=== PATIENT | male | born 1975 | race African-American/Black ===

== ENCOUNTER → 2019-12-29 | Outpatient (CLI) | payer BC ==
--- NOTE | 2019-12-29 16:50 | KCIC ---
Right foot 3 views INDICATION: Tarsal coalition and pain in the right ankle and foot. COMPARISON: None. FINDINGS: AP, oblique and lateral views of the right foot show flattening of the normal plantar arch and moderately advanced mid foot degenerative changes with osteophytic spurring in the talar neck. There is slight valgus deformity of the foot relative to the tibia on the AP view. The subtalar joint is poorly visualized, with a C-shaped curvilinear osseous contour projecting over the subtalar joint that is suggestive of a subtalar tarsal coalition. No acute fracture or aggressive appearing osseous lesions. There is mild early bunion deformity. 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 Right ankle 3 views INDICATION: Pain in the right ankle and joints of the right foot COMPARISON: Right foot x-rays same day. Findings: Normal alignment. No acute fracture. No aggressive appearing osseous lesions. The lateral view suggests subtalar joint tarsal coalition with moderate degenerative change including osteophytic spurring along the margin of the talus. There is also ossific density projecting over the anterior margin of the tibia in the tibiotalar joint, best seen on the lateral view that could represent a loose body. No acute fracture and no aggressive appearing osseous lesions are seen. No significant joint effusion is evident. Soft tissues otherwise unremarkable. 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 Otherwise unremarkable right ankle x-rays. CT or MRI could be helpful in further evaluation. Electronically signed by: Rachele Domingo MD (12/29/2019 4:47 PM) [id number]
== END ==
LOC: KCIC 14:24
PROVIDERS: ATTEND Physician Assistant Medical
DX: M19.071 Primary osteoarthritis, right ankle and foot (principal); Q66.89 Other specified congenital deformities of feet
CPT/HCPCS: 73610; 73630

== ENCOUNTER → 2020-03-02 | Outpatient (CLI) | payer BC ==
--- NOTE | 2020-03-02 16:13 | KCIC ---
EXAM: XR LUMBAR SPINE 4+V 03/02/2020 2:38 PM CLINICAL INDICATION: Lower back pain with sciatica, left muscle spasms. COMPARISON: None TECHNIQUE: 5 views of the lumbar spine FINDINGS: There 5 nonrib-bearing lumbar vertebral bodies. No acute fracture or listhesis. There is s light leftward curvature of the lumbar spine. Minimal osteophyte formation in the lumbar spine. No si gnificant disc space narrowing or facet arthrosis. Sacroiliac joints are normal. There is mild bilate ral hip joint space narrowing with acetabular osteophytes. IMPRESSION: 1. No acute osseous abnormality or significant degenerative disc disease of the lumbar spine. 2. Mild degenerative joint disease of the hips. Electronically signed by: Courtney Choudhary MD (03/02/2020 4:11 PM) [id number]
== END ==
LOC: KCIC 14:35
PROVIDERS: ATTEND Physician Assistant
DX: M16.0 Bilateral primary osteoarthritis of hip (principal); M25.78 Osteophyte, vertebrae; M54.40 Lumbago with sciatica, unspecified side; M62.830 Muscle spasm of back
CPT/HCPCS: 72110